=== PATIENT | female | born 1970 | race Caucasian/White ===

== ENCOUNTER 2018-04-23 00:50 | Inpatient (IN) | payer OTHER ==
[2018-04-23 01:42] LABS: CO2 Tension 37.4 mmHg (35.0-45.0); pH, Arterial 7.38 (7.35-7.45)
[2018-04-23 01:43] LABS: Actual Bicarbonate (HCO3a) 20.7 mEq/L (22-28); Base Excess (BEa) -4.2 mEq/L (-2.0 to +3.0); Hematocrit-ABG 43.4 % (36.0-47.0); O2 Tension (PaO2) 77.1 mmHg (80.0-100.0)
[2018-04-23 01:44] LABS: Analyzer IN Cardio ER; Calcium, Ionized 1.1 mmol/L (1.12-1.30); Puncture Site RRA
[2018-04-23] MEDS ORDERED: Dexamethasone 10 MG/ML VIAL ONE (02:37)
[2018-04-23] MEDS ORDERED: Enoxaparin Sodium 100 MG/ML SYRINGE ONE (03:25)
[2018-04-23 03:54] LABS: CKMB 0.6 ng/mL (0-6.6)
[2018-04-23 04:01] VITALS: BMI 36.5
[2018-04-23 04:04] LABS: Troponin I Less than 0.010 ng/mL (< 0.028)
[2018-04-23] MEDS ORDERED: Ondansetron HCl/PF 4 MG/2 ML Vial IVP PRN (04:04)
[2018-04-23] MEDS ORDERED: Ondansetron ODT 4 MG TAB SL PRN (04:04)
[2018-04-23] MEDS: Sodium Chloride 0.9% 1,000 ML IV SCH ×4 (05:24→18:57)
[2018-04-23] MEDS ORDERED: Acetaminophen 325 MG TAB PO PRN ×2 (07:15→10:43)
[2018-04-23] MEDS ORDERED: Dexamethasone 10 MG/ML VIAL SLOW IVP SCH (09:00)
[2018-04-23] MEDS ORDERED: Prevnar 13-Val Conj/PF 0.5 ML SYRINGE IM ONE (09:00)
[2018-04-23 09:08] LABS: Lactic Acid 1.9 mmol/L (0.5-2.2)
--- NOTE | 2018-04-23 09:44 | CT ---
PRELIMINARY REPORT/[facility]/EMERGENTY AFTER-HOURS PROCEDURE CT Head Without Intravenous Contrast CLINICAL HISTORY: 47 years old, female; Pain; Headache; Headache not specified; Patient HX: Er 14; F47 reports to ed as a transfer from another facility. PT reports SOB amd headache. PT presented to ed with x2 days n/v/d . Denies fever. TECHNIQUE: Axial computed tomography images of the head/brain without intravenous contrast. COMPARISON: No relevant prior studies available. FINDINGS: Brain: No evidence of acute intracranial hemorrhage, extraxial fluid or midline shift. No evidence of acute large vessel infarction. Ventricles: Normal. No ventriculomegaly. Bones/joints: Normal. No acute fracture. Sinuses: Normal as visualized. No acute sinusitis. Mastoid air cells: Normal as visualized. No mastoid effusion. Soft tissues: Normal. IMPRESSION: 1. No evidence of acute intracranial hemorrhage, extraxial fluid or midline shift. 2. No evidence of acute large vessel infarction. Thank you for allowing us to participate in the care of your patient. Dictated and Authenticated by: Angelic Neely MD 04/23/2018 2:34 AM Central Time ([place] & [place]) FINAL REPORT EMERGENCY AFTER HOURS CT OF THE BRAIN WITHOUT CONTRAST: FINDINGS/IMPRESSION: I agree with the findings and impression given in the preliminary report per [facility] physician. No soto dence of acute intracranial abnormality. POS: OFF
[2018-04-23] MEDS ORDERED: Guaifenesin DM 100-10/5 ML UDCUP PO PRN (10:43)
[2018-04-23] MEDS ORDERED: cefTRIAXone\\ROCEPHIN 1 GM in Sodium Chloride 0.9% 100 ML IVPB SCH (11:00)
[2018-04-23] MEDS: Famotidine 20 MG TAB PO SCH (12:53)
[2018-04-23] MEDS: Nicotine 14 MG PATCH TD SCH (12:53)
--- NOTE | 2018-04-23 13:36 | HP ---
REASON FOR ADMISSION: Acute adrenal insufficiency, gastroenteritis, volume depletion, intractable nausea and vomiting. HISTORY OF PRESENTING ILLNESS: The patient gives history of having migraine headaches and had gone to [facility]. Prior to this, she had diarrhea for nearly 3 days with loose watery stools 5-6 times per day. She also vomited once yesterday and had been nauseating. She has history of adrenal insufficiency and not been taking her hydrocortisone due to intractable nausea. The patient's blood pressure was low on arrival. She was also hypoxic on arrival requiring 2 liters oxygen to keep her saturations above 90% on arrival at [facility]. No complaints of fever. She has dry cough. No complaints of any specific weakness in any of the extremities. No complaints of urinary frequency or urgency. PAST MEDICAL AND SURGICAL HISTORY: History of pituitary tumor being removed resulting in adrenal insufficiency and hypothyroidism from 2010, right nephrectomy for cancer which was biopsy proven done in 01/2016 per patient, bipolar disorder, PTSD, hypertension. CURRENT MEDICATIONS: The patient is on Norvasc 5 mg daily, levothyroxine 25 mcg daily, hydrocortisone 10 mg daily, venlafaxine 150 mg q.a.m. and 37.5 mg q.p.m., BuSpar 10 mg 3 times daily, Rantac 150 mg twice daily, olanzapine unknown dose at bedtime. ALLERGIES: No known drug allergies. PERSONAL HISTORY: Smokes 6-8 cigarettes a day. Uses marijuana occasionally. Does not abuse other drugs or alcohol. It has been 4 years off cocaine. She used to smoke crack cocaine before. The patient is currently disabled and retired. She lives with her mom and has 3 grown kids. FAMILY HISTORY: Mother has history of diabetes and hypertension and is living. Father at the age of 42 years. He has had severe peripheral vascular disease with bilateral amputations done. CODE STATUS: FULL. Power of attorney lawyer is her mom. REVIEW OF SYSTEMS: The following complete review of systems was negative, unless otherwise mentioned in the HPI or below: Constitutional: Weight loss or gain, ability to conduct usual activities. Skin: Rash, itching. Eyes: Double vision, pain. ENT/Mouth: Nose bleeding, neck stiffness, pain, tenderness. Cardiovascular: Palpitations, dyspnea on exertion, orthopnea. Respiratory: Shortness of breath, wheezing, cough, hemoptysis, fever or night sweats. Gastrointestinal: Poor appetite, abdominal pain, heartburn, nausea, vomiting, constipation, or diarrhea. Genitourinary: Urgency, frequency, dysuria, nocturia. Musculoskeletal: Pain, swelling. Neurologic/Psychiatric: Anxiety, depression. Allergy/Immunologic: Skin rash, bleeding tendency. PHYSICAL EXAMINATION: GENERAL: The patient is a 47-year-old female who is currently not in any acute distress. VITAL SIGNS: Blood pressure on arrival 100/70, pulse 80 per minute, respiratory rate 20 per minute, temperature 98.6 degrees Fahrenheit, saturating 93% on 2 liters nasal cannula. NECK: Supple, no elevated JVD. EYES: Extraocular muscles intact. Pupils reacting to light. ORAL CAVITY: Mucous membranes are dry. No exudates or congestion. CARDIOVASCULAR SYSTEM: S1, S2 heard. Regular rhythm. RESPIRATORY SYSTEM: Air entry 1+ bilateral. Scattered rhonchi plus bilateral. ABDOMEN: Soft, bowel sounds heard. No tenderness, rigidity or guarding. EXTREMITIES: No peripheral edema or calf tenderness. VASCULAR SYSTEM: Peripheral pulses 1+ bilateral, no ischemic ulcerations or gangrene. CENTRAL NERVOUS SYSTEM: No gross focal deficits seen. Patient is alert, awake , and oriented well. PSYCHIATRIC SYSTEM: The patient's mood is euthymic. No hallucinations or delusions. LABORATORY DATA AND IMAGING DATA: CT brain done for headache showed no acute intracranial hemorrhage or midline shift. No large vessel infarct seen. Chest x-ray done showed no acute pulmonary findings. White count of 5.3, hemoglobin and hematocrit 14 and 43, platelet count 121 with 72% neutrophils. PT, INR, PTT within normal limits. Blood gas done showed pH of 7.38, pCO2 37, pO2 77. Serum bicarbonate 20, BUN 15, creatinine 1.5, serum glucose 178, magnesium 2.8, lactic acid was 2.3 initially. One set of cardiac enzymes are negative. Albumin is 3.7. BNP is 23. CLINICAL IMPRESSION AND PLAN: The patient will be admitted to medical floor for volume depletion with acute gastroenteritis and acute adrenal insufficiency. The patient has not taken her hydrocortisone for 2 days with her acute crisis. She will require IV steroids. Blood and urine cultures have been obtained in the ER. If patient were to have diarrhea again, we will obtain stool studies. She will be on normal saline at 100 mL per hour. Cori p.r.n. The plan is to volume replete and place her back on her steroids in 24 hours. We will continue to closely monitor her on medical floor. There is no obvious source of infection at present. Likely patient is volume depleted from episode of gastroenteritis versus food poisoning, which got resolved from last 3 days or so now. SIMI
--- NOTE | 2018-04-23 14:27 | NM ---
VQ SCAN: HISTORY: Hypoxia, wheezing. TECHNIQUE: A ventilation perfusion scan was performed using 17.4 mCi Xenon-133 by inhalation for the ventilation study followed by intravenous administration of 5.8 mCi technetium-99m MAA for the perfusion scan. FINDINGS: Correlation is made with chest radiograph from the previous night. Fairly homogeneous tracer distribution is seen in the lungs on the ventilation and perfusion scans wi thout mismatched, pleural based, wedge shaped, segmental/subsegmental perfusion defects. IMPRESSION: Normal exam. POS: [facility]
[2018-04-23] MEDS: busPIRone HCl 10 MG TAB PO SCH (20:33)
[2018-04-23] MEDS: OLANZapine 5 MG TAB PO SCH (20:34)
[2018-04-23] MEDS: Venlafaxine HCl 37.5 MG TAB PO SCH (20:34)
[2018-04-24 04:40] LABS: #Lymphocytes 1.3 thou/uL (1.20-3.40); #Monocytes 0.4 thou/uL (0.11-0.59); #Neutrophils 7.5 thou/uL (1.40-6.50); %Eosinophils 0.1 % (0.0-10.0); %Lymphocytes 14.1 % (21.0-51.0); %Monocytes 4.6 % (0.0-10.0); %Neutrophils 81.2 % (42.0-75.0); Hemoglobin 13.5 g/dL (12.0-16.0); Mean Corpuscular HGB CONC 33.1 g/dL (32.0-36.0); Mean Corpuscular Hemoglobin 28.5 pg (27.0-31.0); Mean Corpuscular Volume 86.3 fL (78.0-98.0); Mean Platelet Volume 8.9 fL (7.4-10.4); Platelet Count 138 thou/uL (130-400); RBC Distribution Width 12.2 % (11.5-14.5); Red Blood Cell (RBC) Count 4.72 mill/uL (4.20-5.40); White Blood Cell (WBC) Count 9.2 thou/uL (4.8-10.8)
[2018-04-24 05:10] LABS: Anion Gap 12 mmol/L (10-20); BUN (Urea Nitrogen) 14 mg/dL (7.0-18.7); Calc. Creatinine Clearance 102 mL/min (70-130); Carbon Dioxide 22 mmol/L (22-29); Chloride 110 mmol/L (98-107); Estimated GFR-MDRD 51; Glucose 177 mg/dL (70-105); Potassium 4.6 mmol/L (3.5-5.1); Sodium 139 mmol/L (136-145)
[2018-04-24] MEDS: Levothyroxine Sodium 125 MCG TAB PO SCH (05:48)
[2018-04-24] MEDS ORDERED: Levothyroxine Sodium 25 MCG TAB PO SCH (06:00)
[2018-04-24] MEDS: Sodium Chloride 0.9% 1,000 ML IV SCH (06:53)
[2018-04-24] MEDS: Famotidine 20 MG TAB PO SCH ×2 (07:59→20:07)
[2018-04-24] MEDS: Nicotine 14 MG PATCH TD SCH (07:59)
[2018-04-24] MEDS: busPIRone HCl 10 MG TAB PO SCH ×3 (07:59→20:07)
[2018-04-24] MEDS: Enoxaparin Sodium 40 MG/0.4 ML SYRINGE SC SCH (09:53)
--- NOTE | 2018-04-24 12:17 | PDOC.PN ---
- Subjective Encounter Start Date: 04/24/18 Encounter Start Time: 11:00 Subjective: no nausea or vomiting or diarrhea -: slept well last night -: is amb in room, not dizzy - Objective Resuscitation Status: Resuscitation Status FULL:Full Resuscitation MAR Reviewed: Yes Vital Signs & Weight: Vital Signs (12 hours) Temp Pulse Resp BP Pulse Ox 04/24/18 11:23 97.7 F 72 16 90/60 90 L 04/24/18 08:00 98.0 F 52 L 16 04/24/18 07:12 98.0 F 52 L 16 108/71 94 L I&O: 04/23/18 04/24/18 04/25/18 06:59 06:59 06:59 Intake Total 700 2900 1200 Balance 700 2900 1200 Result Diagrams: 04/24/18 04:03 04/24/18 04:03 Phys Exam - Physical Examination HEENT: PERRLA, sclera anicteric Neck: no JVD, supple Respiratory: no wheezing, no rales Cardiovascular: RRR, no significant murmur Gastrointestinal: soft, non-tender, positive bowel sounds Musculoskeletal: no edema, pulses present Neurological: non-focal, moves all 4 limbs Psychiatric: normal affect, A&O x 3 Dx/Plan (1) Adrenal insufficiency Code(s): E27.40 - UNSPECIFIED ADRENOCORTICAL INSUFFICIENCY Status: Acute (2) Dehydration Code(s): E86.0 - DEHYDRATION Status: Acute (3) Hypothyroidism Code(s): E03.9 - HYPOTHYROIDISM, UNSPECIFIED Status: Chronic Qualifiers: Hypothyroidism type: acquired Qualified Code(s): E03.9 - Hypothyroidism, unspecified (4) Obesity (BMI 30-39.9) Code(s): E66.9 - OBESITY, UNSPECIFIED Status: Chronic (5) Bipolar disorder Code(s): F31.9 - BIPOLAR DISORDER, UNSPECIFIED Status: Chronic Qualifiers: Active/Remission status: remission status unspecified Qualified Code(s): F31.9 - Bipolar disorder, unspecified (6) UTI (urinary tract infection) Status: Acute Qualifiers: Urinary tract infection type: acute cystitis Hematuria presence: without hematuria Qualified Code(s): N30.00 - Acute cystitis without hematuria - Plan will switch pt to hydrocortisone home dose and watch for vitals -: cipro for uti, urine cs no growth -: dehydration is resolving -: may dc iv fluids after current bag -: dc plan when sbp above 110 consistently, is off norvasc * . Review of Systems - Medications/Allergies Allergies/Adverse Reactions: Allergies Allergy/AdvReac Type Severity Reaction Status Date / Time No Known Drug Allergies Allergy Verified 04/23/18 04:03 Medications: Current Medications Acetaminophen (Tylenol) 650 mg PO Q4H PRN PRN Reason: Headache/Fever or Pain Albuterol/Ipratropium (Duoneb) 3 ml NEB [id number] PRN PRN Reason: SOB &/or Wheezing Buspirone HCl (Buspar) 10 mg PO TID [facility] Last Admin: 04/24/18 07:59 Dose: 10 mg Enoxaparin Sodium (Lovenox) 40 mg SC 0900 [facility] Last Admin: 04/24/18 09:53 Dose: Not Given Famotidine (Pepcid) 20 mg PO BID [facility] Last Admin: 04/24/18 07:59 Dose: 20 mg Guaifenesin/Dextromethorphan (Robitussin Dm) 15 ml PO Q4H PRN PRN Reason: Cough Hydrocortisone (Cortef) 15 mg PO DAILY [facility] Ciprofloxacin/Dextrose 400 mg/ (Device) 200 mls @ 200 mls/hr IVPB Q12HR [facility] Last Admin: 04/24/18 07:56 Dose: 200 mls Sodium Chloride (Normal Saline 0.9%) 1,000 mls @ 100 mls/hr IV .Q10H [facility] Last Admin: 04/24/18 06:53 Dose: 1,000 mls Levothyroxine Sodium (Synthroid) 125 mcg PO 0600 [facility] Last Admin: 04/24/18 05:48 Dose: 125 mcg Nicotine (Nicoderm Patch) 14 mg TD Q24HR [facility] Last Admin: 04/24/18 07:59 Dose: 14 mg Olanzapine (Zyprexa) 10 mg PO HS [facility] Last Admin: 04/23/18 20:34 Dose: 10 mg Venlafaxine HCl (Effexor) 150 mg PO QAM [facility] Last Admin: 04/24/18 07:57 Dose: 150 mg Venlafaxine HCl (Effexor) 37.5 mg PO HS [facility] Last Admin: 04/23/18 20:34 Dose: 37.5 mg
[2018-04-24] MEDS: Hydrocortisone 10 mg Tablet PO SCH (12:28)
[2018-04-24] MEDS: OLANZapine 5 MG TAB PO SCH (20:07)
[2018-04-24] MEDS: Venlafaxine HCl 37.5 MG TAB PO SCH (20:08)
[2018-04-25] MEDS: Levothyroxine Sodium 125 MCG TAB PO SCH (06:17)
[2018-04-25] MEDS: Hydrocortisone 10 mg Tablet PO SCH (08:07)
[2018-04-25] MEDS: busPIRone HCl 10 MG TAB PO SCH (08:09)
[2018-04-25] MEDS: Famotidine 20 MG TAB PO SCH (08:09)
[2018-04-25] MEDS: Enoxaparin Sodium 40 MG/0.4 ML SYRINGE SC SCH (08:10)
[2018-04-25 10:59] VITALS: BP 115/79; TEMP 97.4
== END 2018-04-25 13:52 | disposition home or self-care (01) | DRG 392 ==
LOC: ERS 00:50 → T4-A 03:36
PROVIDERS: ADMIT Hospitalist; ATTEND Hospitalist
DX: K52.9 Noninfective gastroenteritis and colitis, unspecified (principal); E27.40 Unspecified adrenocortical insufficiency; N30.00 Acute cystitis without hematuria; E86.0 Dehydration; E03.9 Hypothyroidism, unspecified; E66.9 Obesity, unspecified; F31.9 Bipolar disorder, unspecified; N30.90 Cystitis, unspecified without hematuria; E86.9 Volume depletion, unspecified; R09.02 Hypoxemia; F17.210 Nicotine dependence, cigarettes, uncomplicated; Z91.14 Patient's other noncompliance with medication regimen; Z90.5 Acquired absence of kidney; Z85.528 Personal history of other malignant neoplasm of kidney; I10 Essential (primary) hypertension; G43.909 Migraine, unspecified, not intractable, without status migrainosus; F12.90 Cannabis use, unspecified, uncomplicated; Z68.36 Body mass index [BMI] 36.0-36.9, adult
CPT/HCPCS: 36415; 70450; 78582; 80048; 82553; 82805; 83605; 83880; 84484; 85025; 87040; 87086; 90471; 90670; 93005; 94640; 94760; 96365; 96372; 96375; A9540; A9558; G0009; J0696; J0744; J1100; J1650; J1956; J2920; J7050; J7620

== ENCOUNTER 2019-12-09 13:37 | Outpatient (CLI) | payer OTHER ==
--- NOTE | 2020-01-07 08:46 | MMO ---
Bilateral MAMMO Bilat Screen [facility]. CLINICAL HISTORY: Patient is 49 years old and is seen for screening. The patient has no family history of breast cancer. The patient has no personal history of cancer. VIEWS: The views performed were: bilateral craniocaudal and bilateral mediolateral oblique. This study has been interpreted with the assistance of computer-aided detection. MAMMOGRAM FINDINGS: The breasts are almost entirely fat. Finding 1: There are stable benign appearing calcifications seen in both breasts. Finding 2: There is an intramammary lymph node seen in the upper-outer region of the right breast. There are no suspicious masses, suspicious calcifications, or new areas of architectural distortion. IMPRESSION: THERE IS NO MAMMOGRAPHIC EVIDENCE OF MALIGNANCY. A ROUTINE FOLLOW-UP MAMMOGRAM IN 1 YEAR IS RECOMMENDED. ACR BI-RADS Category 2 - Benign finding MAMMOGRAPHY NOTE: 1. A negative mammogram report should not delay a biopsy if a dominant of clinically suspicious mass is present. 2. Approximately 10% to 15% of breast cancers are not detected by mammography. 3. Adenosis and dense breasts may obscure an underlying neoplasm. Reported by: JULES PUENTE MD Electonically Signed: [id number]
== END 2019-12-09 13:38 | disposition home or self-care (01) ==
LOC: BICMAMMO 13:37
PROVIDERS: ATTEND Family Medicine
DX: Z12.31 Encounter for screening mammogram for malignant neoplasm of breast (principal)
CPT/HCPCS: 77067